=== PATIENT | male | born 1995 | race Two or more races ===

== ENCOUNTER 2017-07-30 10:19 | Emergency (ER) | payer OTHER ==
[~2017-07-30] VITALS: Ht 175.3 cm; Wt 90.7 kg
[2017-07-30 10:22] VITALS: BP 138/89
[2017-07-30] MEDS ORDERED: ONDANSETRON 4 MG TAB.RAPDIS PO ONE (10:30)
== END 2017-07-30 10:32 | disposition home or self-care (01) ==
LOC: ER 10:22
DX: Z02.89 Encounter for other administrative examinations (principal); F11.23 Opioid dependence with withdrawal
CPT/HCPCS: A4606; Z7610